=== PATIENT | male | born 1995 | race Two or more races ===

== ENCOUNTER 2021-06-03 17:29 | Emergency (ER) | payer MEDICAID, OTHER ==
[~2021-06-03] VITALS: Ht 182.9 cm; Wt 50.8 kg
[2021-06-03] MEDS ORDERED: cefTRIAXone SOD 1,000 MG VL IM ONE (18:00)
[2021-06-03] MEDS ORDERED: methylPREDNISolone SOD SUCC 125 MG/2 ML VL IM ONE (18:00)
[2021-06-03 18:22] VITALS: BP 116/76
== END 2021-06-03 18:53 | disposition home or self-care (01) ==
LOC: ER 17:29
DX: J03.90 Acute tonsillitis, unspecified (principal)
CPT/HCPCS: 96372; 99284; J0696; J2930

== ENCOUNTER 2022-06-17 08:17 | Emergency (ER) | payer MEDICAID ==
[~2022-06-17] VITALS: Ht 182.9 cm; Wt 51.0 kg
[2022-06-17 08:43] VITALS: BP 115/63
[2022-06-17] MEDS ORDERED: BACDST PO (10:51)
== END 2022-06-17 11:01 | disposition home or self-care (01) ==
LOC: ER 08:17
DX: L02.31 Cutaneous abscess of buttock (principal)
CPT/HCPCS: 10061